=== PATIENT | male | born 1955 | race American Indian/Alaskan Native ===

== ENCOUNTER 2019-07-02 11:28 | Observation (INO) | payer OTHER ==
--- NOTE | 2019-07-02 12:30 | Emergency Department Report ---
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 While he was sitting in the chair he was reading the sign and he reports groin increasingly worsening dizziness which was followed by persons waking him up and he had just passed out. Reports having no headache, chest pain, palpitations, nausea or vomiting normal at right now but just prior to passing out he did notice some dizziness and increased heat. According to his doctor's records there was some some diaphoresis that was associated with the syncopal episode. No pain. The stimuli preceded his syncope. No palliative or provocative factors are noted. He reports that he feels normal towards his baseline Timing/Prior Episodes: single episode today Precipitating Factors: Positive: blurred vision Context: sitting Loss of Consciousness: brief (seconds) Current Symptoms: back to normal - Related Data Allergies/Adverse Reactions: Allergies No Known Allergies Allergy (Verified 06/06/19 13:53) Home Medications: Ambulatory Orders Meloxicam 15 mg PO PRN 06/07/19 Aspirin [Adult Aspirin] 81 mg PO DAILY 07/03/19 AtorvaSTATin [Lipitor] 40 mg PO QHS #30 tablet 07/04/19 Clopidogrel [Plavix] 75 mg PO QDAY #30 tablet 07/04/19 Metoprolol [Lopressor TAB] 50 mg PO BID #60 tablet 07/04/19 Sacubitril/Valsartan [Entresto 24 - 26 mg] 1 each PO BID #60 tablet 07/04/19 ED Review of Systems ROS: Stated complaint: SYNCOPY Other details as noted in HPI Comment: All other systems reviewed and negative ED Past Medical Hx - Past Medical History Previous Medical History?: Yes Hx Kidney Stones: Yes Additional medical history: two coronary stints - Surgical History Past Surgical History?: Yes Hx Coronary Stent: Yes - Social History Smoking Status: Never Smoker Substance Use Type: None - Medications Home Medications: Home Medications Medication Instructions Recorded Confirmed Last Taken Type Meloxicam 15 mg PO PRN 06/07/19 07/03/19 1 Week Ago History ~05/31/19 Aspirin [Adult Aspirin] 81 mg PO DAILY 02/01/20 02/01/20 Unknown History AtorvaSTATin [Lipitor] 40 mg PO QHS #30 tablet 07/04/19 Unknown Rx Clopidogrel [Plavix] 75 mg PO QDAY #30 tablet 07/04/19 Unknown Rx Metoprolol [Lopressor TAB] 50 mg PO BID #60 tablet 07/04/19 Unknown Rx Sacubitril/Valsartan [Entresto 24 1 each PO BID #60 tablet 07/04/19 Unknown Rx - 26 mg] ED Physical Exam - General Limitations: No Limitations General appearance: alert, in no apparent distress - Head Head exam: Present: atraumatic, normocephalic, normal inspection - Eye Eye exam: Present: normal appearance, PERRL, EOMI, other (negative funduscopic examination) - ENT ENT exam: Present: normal exam, mucous membranes moist, TM's normal bilaterally - Neck Neck exam: Present: normal inspection, full ROM. Absent: tenderness, meningismus, lymphadenopathy - Respiratory Respiratory exam: Present: normal lung sounds bilaterally. Absent: respiratory distress, wheezes, rales, rhonchi, chest wall tenderness, accessory muscle use, decreased breath sounds - Cardiovascular Cardiovascular Exam: Present: regular rate, normal rhythm. Absent: bradycardia, tachycardia, irregular rhythm, systolic murmur, diastolic murmur, rubs, gallop - GI/Abdominal GI/Abdominal exam: Present: soft, normal bowel sounds. Absent: distended - Rectal Rectal exam: Present: deferred - Extremities Exam Extremities exam: Present: normal inspection - Back Exam Back exam: Present: normal inspection - Neurological Exam Neurological exam: Present: alert, oriented X3, CN II-XII intact - Psychiatric Psychiatric exam: Present: normal affect, normal mood - Skin Skin exam: Present: warm, dry, intact, normal color. Absent: rash ED Course Vital Signs 07/02/19 07/02/19 07/02/19 11:39 11:45 11:48 Temperature 98.2 F Pulse Rate 72 76 Respiratory 20 18 Rate Blood Pressure 107/75 107/75 Blood Pressure 107/75 [Right] O2 Sat by Pulse 89 100 100 Oximetry 07/02/19 07/02/19 07/02/19 12:01 12:15 12:31 Temperature Pulse Rate 70 77 81 Respiratory 17 10 L 10 L Rate Blood Pressure 107/75 107/75 107/75 Blood Pressure [Right] O2 Sat by Pulse 98 99 99 Oximetry 07/02/19 07/02/19 07/02/19 12:45 13:01 13:15 Temperature Pulse Rate 76 76 86 Respiratory 12 16 9 L Rate Blood Pressure 107/75 107/75 107/75 Blood Pressure [Right] O2 Sat by Pulse 99 97 99 Oximetry 07/02/19 07/02/19 07/02/19 13:31 13:45 14:01 Temperature Pulse Rate 85 86 91 H Respiratory 17 21 12 Rate Blood Pressure 107/75 107/75 107/75 Blood Pressure [Right] O2 Sat by Pulse 98 97 100 Oximetry 07/02/19 07/02/19 07/02/19 14:15 14:28 14:31 Temperature Pulse Rate 91 H 96 H Respiratory 18 1 L 18 Rate Blood Pressure 107/75 107/75 Blood Pressure [Right] O2 Sat by Pulse 99 100 97 Oximetry 07/02/19 07/02/19 07/02/19 14:45 15:01 15:15 Temperature Pulse Rate 99 H 108 H 102 H Respiratory 18 18 22 Rate Blood Pressure 107/75 107/75 107/75 Blood Pressure [Right] O2 Sat by Pulse 100 99 99 Oximetry 07/02/19 07/02/19 07/02/19 15:31 15:45 16:01 Temperature Pulse Rate 98 H 97 H 104 H Respiratory 20 19 21 Rate Blood Pressure 107/75 107/75 107/75 Blood Pressure [Right] O2 Sat by Pulse 98 97 100 Oximetry 07/02/19 07/02/19 07/02/19 16:15 16:37 16:45 Temperature Pulse Rate 105 H 91 H 95 H Respiratory 24 17 18 Rate Blood Pressure 107/75 107/75 107/75 Blood Pressure [Right] O2 Sat by Pulse 100 100 99 Oximetry 07/02/19 07/02/19 07/02/19 17:01 17:15 17:31 Temperature Pulse Rate 99 H 96 H 95 H Respiratory 18 17 17 Rate Blood Pressure 107/75 107/75 Blood Pressure [Right] O2 Sat by Pulse 98 99 97 Oximetry 07/02/19 07/02/19 07/02/19 17:45 18:01 18:15 Temperature Pulse Rate 106 H 115 H 101 H Respiratory 16 16 20 Rate Blood Pressure Blood Pressure [Right] O2 Sat by Pulse 97 94 97 Oximetry 07/02/19 07/02/19 07/02/19 18:31 18:45 19:01 Temperature Pulse Rate 98 H 92 H 113 H Respiratory 21 19 28 H Rate Blood Pressure Blood Pressure [Right] O2 Sat by Pulse 97 100 Oximetry 07/02/19 07/02/19 07/02/19 19:15 19:31 19:45 Temperature Pulse Rate 101 H 102 H 100 H Respiratory 19 20 12 Rate Blood Pressure Blood Pressure [Right] O2 Sat by Pulse 100 100 99 Oximetry 07/02/19 07/02/19 07/02/19 20:37 20:41 21:09 Temperature Pulse Rate 96 H 112 H 82 Respiratory 16 Rate Blood Pressure 132/80 Blood Pressure [Right] O2 Sat by Pulse Oximetry ED Medical Decision Making - Lab Data Result diagrams: 07/03/19 04:16 07/03/19 04:16 - EKG Data EKG shows normal: sinus rhythm - EKG Data When compared to previous EKG there are: no significant change - Medical Decision Making This 64 patient presents with symptoms consistent with syncope, most likely due to cardiovascular etiology. Differential diagnosis includes cardiogenic's reflex syncope (i.e. vasovagal syncope). Low suspicion for orthostatic syncope given lack of dehydration, no evidence of acute life threatening hemorrhage. Presentation not consistent with seizures given short time course, no postictal state, no seizure activity. Low suspicion for acute neurologic catastrophes to include ICH given lack of trauma, risk factors for bleeding diatheses. Low suspicion for vascular catastrophes to include PE, thoracic aortic dissection, AAA rupture. Presentation not consistent with acute life threatening arrhythmia, structural heart disease, electrical conduction abnormalities, or ACS . However, given age, cardiovascular risk factors, history & physical, will workup and admit to telemetry. Plan: labs, troponin, CXR, EKG, serial reassessment Critical care attestation.: If time is entered above; I have spent that time in minutes in the direct care of this critically ill patient, excluding procedure time. ED Disposition Clinical Impression: Syncope, cardiogenic Disposition: OP ADMIT IP TO THIS HOSP Is pt being admited?: Yes Does the pt Need Aspirin: No Condition: Stable
--- NOTE | 2019-07-02 12:39 | Event Note ---
Date: 07/02/19 Patient referred to the ED following a syncopal episode in our office. Patient suffered an acute anterolateral AK 3 weeks ago followed by PCI of the LAD using drug eluting stents. His residual LVEF was 20-25%. Recommendations: Telemetry monitoring. Lifevest placement before discharge.
[2019-07-02 14:53] LABS: Hematocrit 35.3 % (35.5-45.6); Hemoglobin 11.4 gm/dl (11.8-15.2); Mean Corpuscular HGB Conc 32 % (32-34); Mean Corpuscular Volume 88 fl (84-94); Platelet Count 218 K/mm3 (140-440); Red Blood Count 4.03 M/mm3 (3.65-5.03); Red Cell Distribution Width 13.8 % (13.2-15.2)
[2019-07-02 15:22] LABS: Alanine Aminotransferase 16 units/L (7-56); Albumin 3.4 g/dL (3.9-5); BUN/Creatinine Ratio 21; Blood Urea Nitrogen 19 mg/dL (9-20); Calcium 9.3 mg/dL (8.4-10.2); Hemolysis Index 6
[2019-07-02 15:38] LABS: Bacteria,Urine 1+ /HPF (Negative); Bilirubin,Urine NEG (Negative); Blood,Urine SM (Negative); Color,Urine Yellow (Yellow); Mucus,Urine 3+ /HPF; Protein,Urine <15 mg/dL mg/dL (Negative); Sperm,Urine FEW /HPF (NP); Urobilinogen,Urine < 2.0 mg/dL (<2.0)
--- NOTE | 2019-07-02 17:11 | Cat Scan Report ---
CT HEAD WITHOUT CONTRAST INDICATION : Syncope. TECHNIQUE: Axial imaging performed from the skull apex through the skull base without IV contrast. All CT scans at this location are performed using CT dose reduction for ALARA by means of automated e xposure control. COMPARISON: None FINDINGS: Noncontrast head CT demonstrates normal ventricles and sulci. Slight periventricular hypod ensities. Small cavum velum interpositum incidentally noted. No acute or recent infarct, hemorrhage , mass effect or midline shift. Minimal, benign bilateral basal ganglia calcifications. No abnormal extra-axial fluid collections. Grossly normal posterior fossa with preserved basilar cisterns. Normal imaged eye globes. Mild right sphenoid sinusitis inferiorly, axial image 8, series 3. Clear remainder visualized paranasal sinuses and mastoid air cells. Intact calvarium. Normal scalp. Multip le radiopaque dental material. IMPRESSION: No acute intracranial CT abnormality with mild right sphenoid sinusitis noted, as describ ed. Signer Name: Anival Riggs Signed: 07/02/2019 5:06 PM Workstation Name: [id number]
--- NOTE | 2019-07-02 17:20 | Cat Scan Report ---
CTA CHEST WITH CONTRAST / CT angio chest INDICATION : syncope. TECHNIQUE: Axial imaging performed through the chest, with contrast bolus timing set to maximize opa cification of the pulmonary arteries. 3-plane MIP reformatted images were obtained. All CT scans at this location are performed using CT dose reduction for ALARA by means of automated exposure control. 100 mL of intravenous contrast administered. COMPARISON: None similar. FINDINGS: Normal heart size. No effusions. No aortic aneurysm, dissection or suspicious pulmonary art erial filling defects, to the extent assessed. No size significant adenopathy. Normal airway. Normal size thyroid with small calcifications inferiorly on the left. Clear lungs. A tiny 1 mm extre me right lower lobe calcified granuloma medially may incidentally be noted, axial series 2, image 356 . Imaged upper abdomen reveals no acute significant abnormality. Mild mid to lower thoracic spine dege nerative spurring. IMPRESSION: No CT evidence of pulmonary embolism with few other incidental findings, as above. Thank you for the opportunity to participate in this patient's care. Signer Name: Anival Riggs Signed: 07/02/2019 5:16 PM Workstation Name: [id number]
[2019-07-02 18:00] LABS: Basophils % (Manual) 0 % (0.0-1.8); Total Cells Counted 100
[2019-07-02 18:01] LABS: RBC Morphology Normal
[2019-07-02] MEDS ORDERED: ONDANSETRON 4 MG/2 ML INJ IV PRN (19:06)
[2019-07-02] MEDS ORDERED: HYDROmorphone 1 MG/1 ML INJ IV PRN (19:06)
[2019-07-02] MEDS ORDERED: ACETAMINOPHEN 325 MG TAB PO PRN (19:06)
[2019-07-02] MEDS ORDERED: oxyCODONE /ACETAMINOPHEN 5-325MG TAB PO PRN (19:06)
[2019-07-02] MEDS ORDERED: MELOXICAM 15 MG PO SCH (19:15)
[2019-07-02] MEDS ORDERED: LISINOPRIL 10 MG TAB PO SCH (20:00)
[2019-07-02] MEDS ORDERED: ASPIRIN EC 325 MG TAB PO SCH (20:00)
[2019-07-02] MEDS ORDERED: CLOPIDOGREL 75 MG TAB ONE (20:36)
[2019-07-02] MEDS ORDERED: ASPIRIN EC 325 MG TAB PO ONE (20:36)
[2019-07-02] MEDS ORDERED: LISINOPRIL 10 MG TAB ONE (20:37)
[2019-07-02] MEDS ORDERED: METOPROLOL TARTRATE 50 MG TAB ONE (20:47)
[2019-07-02] MEDS: CLOPIDOGREL 75 MG TAB PO SCH (21:09)
[2019-07-02] MEDS ORDERED: MELOXICAM 7.5 MG TAB PO PRN (22:26)
[2019-07-02] MEDS: METOPROLOL TARTRATE 100 MG TAB PO SCH (22:53)
[2019-07-02] MEDS: HEPARIN 5,000 UNIT/1 ML VIAL SUB-Q SCH (22:54)
[2019-07-02] MEDS: D5W/0.9% NACL 1,000 ML IV SCH (22:55)
[2019-07-03 04:54] LABS: Basophils % (Auto) 0.3 % (0.0-1.8); Eosinophils # (Auto) 0.1 K/mm3 (0.0-0.4); Eosinophils % (Auto) 2.9 % (0.0-4.3); Hematocrit 28.1 % (35.5-45.6); Hemoglobin 9.2 gm/dl (11.8-15.2); Lymphocytes # (Auto) 1.4 K/mm3 (1.2-5.4); Lymphocytes % (Auto) 30.7 % (13.4-35.0); Mean Corpuscular HGB Conc 33 % (32-34); Mean Corpuscular Volume 87 fl (84-94); Monocytes # (Auto) 0.5 K/mm3 (0.0-0.8); Monocytes % (Auto) 11.8 % (0.0-7.3); Platelet Count 183 K/mm3 (140-440); Red Blood Count 3.22 M/mm3 (3.65-5.03); Red Cell Distribution Width 14.3 % (13.2-15.2)
[2019-07-03 05:17] LABS: Alanine Aminotransferase 12 units/L (7-56); Albumin 3.2 g/dL (3.9-5); BUN/Creatinine Ratio 17; Blood Urea Nitrogen 17 mg/dL (9-20); Calcium 8.9 mg/dL (8.4-10.2); Hemolysis Index 2
--- NOTE | 2019-07-03 08:48 | Progress Note ---
Assessment and Plan 1. Syncope and collapse 2. Coronary artery disease status post recent acute myocardial infarction 3. Status post stent insertion into the left anterior descending artery 4. Ischemic cardiomyopathy Plan. Patient is currently stable electrolytes check shows normal electrolytes. Patient probably experienced a malignant cardiac dysrhythmia leading to syncope which most likely upon spontaneously resolved. He will receive a life vest brought to discharge with plans for permanent ICD insertion as per ACC recommendation Subjective Date of service: 07/03/19 Interval history: No cardiac symptoms. Objective Vital Signs Temp Pulse Resp BP BP Pulse Ox 07/03/19 05:33 98.8 F 98 H 18 90/55 99 07/03/19 04:00 73 07/03/19 00:00 20 07/02/19 23:48 98.4 F 81 18 85/55 96 07/02/19 21:36 98.2 F 88 18 94/49 100 07/02/19 21:09 82 132/80 07/02/19 20:41 112 H 16 07/02/19 20:37 96 H 07/02/19 19:45 100 H 12 99 07/02/19 19:31 102 H 20 100 07/02/19 19:15 101 H 19 100 07/02/19 19:01 113 H 28 H 07/02/19 18:45 92 H 19 100 07/02/19 18:31 98 H 21 97 07/02/19 18:15 101 H 20 97 07/02/19 18:01 115 H 16 94 07/02/19 17:45 106 H 16 97 07/02/19 17:31 95 H 17 97 07/02/19 17:15 96 H 17 107/75 99 07/02/19 17:01 99 H 18 107/75 98 07/02/19 16:45 95 H 18 107/75 99 07/02/19 16:37 91 H 17 107/75 100 07/02/19 16:15 105 H 24 107/75 100 07/02/19 16:01 104 H 21 107/75 100 07/02/19 15:45 97 H 19 107/75 97 07/02/19 15:31 98 H 20 107/75 98 07/02/19 15:15 102 H 22 107/75 99 07/02/19 15:01 108 H 18 107/75 99 07/02/19 14:45 99 H 18 107/75 100 07/02/19 14:31 96 H 18 107/75 97 07/02/19 14:28 1 L 100 07/02/19 14:15 91 H 18 107/75 99 07/02/19 14:01 91 H 12 107/75 100 07/02/19 13:45 86 21 107/75 97 07/02/19 13:31 85 17 107/75 98 07/02/19 13:15 86 9 L 107/75 99 07/02/19 13:01 76 16 107/75 97 07/02/19 12:45 76 12 107/75 99 07/02/19 12:31 81 10 L 107/75 99 07/02/19 12:15 77 10 L 107/75 99 07/02/19 12:01 70 17 107/75 98 07/02/19 11:48 98.2 F 76 18 107/75 107/75 100 07/02/19 11:45 72 20 107/75 100 07/02/19 11:39 89 - Physical Examination General: Appears Well, No Apparent Distress HEENT: Neck: Cardiac: Lungs: Neuro: Abdomen: /Rectal: Normal Prostate, No Masses Skin: Musculoskeletal: No Fluid Collection, No Pain, Normal Range of Motion Gait: Normal Gait Extremities: - Labs and Meds Cardiac Enzymes 07/02/19 07/02/19 07/02/19 Range/Units 14:37 14:37 14:52 WBC 5.4 (4.5-11.0) K/mm3 RBC 4.03 (3.65-5.03) M/mm3 Hgb 11.4 L (11.8-15.2) gm/dl Hct 35.3 L (35.5-45.6) % MCV 88 (84-94) fl MCH 28 (28-32) pg MCHC 32 (32-34) % RDW 13.8 (13.2-15.2) % Plt Count 218 (140-440) K/mm3 Lymph % (Auto) (13.4-35.0) % [place] % (Auto) (0.0-7.3) % Eos % (Auto) (0.0-4.3) % Baso % (Auto) (0.0-1.8) % Lymph # (1.2-5.4) K/mm3 [place] # (0.0-0.8) K/mm3 Eos # (0.0-0.4) K/mm3 Baso # (0.0-0.1) K/mm3 Add Manual Diff Complete Total Counted 100 Seg Neutrophils % (40.0-70.0) % Seg Neuts % (Manual) 79.0 H (40.0-70.0) % Band Neutrophils % 0 % Lymphocytes % (Manual) 16.0 (13.4-35.0) % Reactive Lymphs % (Man) 0 % Monocytes % (Manual) 4.0 (0.0-7.3) % Eosinophils % (Manual) 1.0 (0.0-4.3) % Basophils % (Manual) 0 (0.0-1.8) % Metamyelocytes % 0 % Myelocytes % 0 % Promyelocytes % 0 % Blast Cells % 0 % Nucleated RBC % Not Reportable Seg Neutrophils # (1.8-7.7) K/mm3 Seg Neutrophils # Man 4.3 (1.8-7.7) K/mm3 Band Neutrophils # 0.0 K/mm3 Lymphocytes # (Manual) 0.9 L (1.2-5.4) K/mm3 Abs React Lymphs (Man) 0.0 K/mm3 Monocytes # (Manual) 0.2 (0.0-0.8) K/mm3 Eosinophils # (Manual) 0.1 (0.0-0.4) K/mm3 Basophils # (Manual) 0.0 (0.0-0.1) K/mm3 Metamyelocytes # 0.0 K/mm3 Myelocytes # 0.0 K/mm3 Promyelocytes # 0.0 K/mm3 Blast Cells # 0.0 K/mm3 WBC Morphology Not Reportable Hypersegmented Neuts Not Reportable Hyposegmented Neuts Not Reportable Hypogranular Neuts Not Reportable Smudge Cells Not Reportable Toxic Granulation Not Reportable Toxic Vacuolation Not Reportable Dohle Bodies Not Reportable Pelger-Huet Anomaly Not Reportable Sheron Rods Not Reportable Platelet Estimate Not Reportable Clumped Platelets Not Reportable Plt Clumps, EDTA Not Reportable Large Platelets Not Reportable Giant Platelets Not Reportable Platelet Satelliting Not Reportable Plt Morphology Comment Not Reportable RBC Morphology Normal Dimorphic RBCs Not Reportable Polychromasia Not Reportable Hypochromasia Not Reportable Poikilocytosis Not Reportable Anisocytosis Not Reportable Microcytosis Not Reportable Macrocytosis Not Reportable Spherocytes Not Reportable Pappenheimer Bodies Not Reportable Sickle Cells Not Reportable Target Cells Not Reportable Tear Drop Cells Not Reportable Ovalocytes Not Reportable Helmet Cells Not Reportable Martin-Eldred Bodies Not Reportable [place] Rings Not Reportable Twilight Cells Not Reportable Bite Cells Not Reportable Crenated Cell Not Reportable Elliptocytes Not Reportable Acanthocytes (Spur) Not Reportable Rouleaux Not Reportable Hemoglobin C Crystals Not Reportable Schistocytes Not Reportable Malaria parasites Not Reportable German Bodies Not Reportable Hem Pathologist Commnt No Sodium 144 (137-145) mmol/L Potassium 4.4 (3.6-5.0) mmol/L Chloride 107.1 H (98-107) mmol/L Carbon Dioxide 20 L (22-30) mmol/L Anion Gap 21 mmol/L BUN 19 (9-20) mg/dL Creatinine 0.9 (0.8-1.5) mg/dL Estimated GFR > 60 ml/min BUN/Creatinine Ratio 21 % Glucose 93 (75-100) mg/dL Hemoglobin A1c (4-6) % Calcium 9.3 (8.4-10.2) mg/dL Total Bilirubin 0.40 (0.1-1.2) mg/dL AST 19 (5-40) units/L ALT 16 (7-56) units/L Alkaline Phosphatase 57 (35-129) units/L Troponin T 0.019 (0.00-0.029) ng/mL Total Protein 7.7 (6.3-8.2) g/dL Albumin 3.4 L (3.9-5) g/dL Albumin/Globulin Ratio 0.8 % Urine Color Yellow (Yellow) Urine Turbidity Slightly-cloudy (Clear) Urine pH 5.0 (5.0-7.0) Ur Specific [place] 1.021 (1.003-1.030) Urine Protein <15 mg/dl (Negative) mg/dL Urine Glucose (UA) Neg (Negative) mg/dL Urine Ketones Tr (Negative) mg/dL Urine Blood Sm (Negative) Urine Nitrite Neg (Negative) Urine Bilirubin Neg (Negative) Urine Urobilinogen < 2.0 (<2.0) mg/dL Ur Leukocyte Esterase Neg (Negative) Urine WBC (Auto) 5.0 (0.0-6.0) /HPF Urine RBC (Auto) 3.0 (0.0-6.0) /HPF U Epithel Cells (Auto) 1.0 (0-13.0) /HPF Urine Bacteria (Auto) 1+ (Negative) /HPF Urine Mucus 3+ /HPF Urine Sperm Few (M[employer] MERCHANDISER) /HPF 07/03/19 07/03/19 07/03/19 Range/Units 04:16 04:16 04:16 WBC 4.4 L (4.5-11.0) K/mm3 RBC 3.22 L (3.65-5.03) M/mm3 Hgb 9.2 L (11.8-15.2) gm/dl Hct 28.1 L D (35.5-45.6) % MCV 87 (84-94) fl MCH 29 (28-32) pg MCHC 33 (32-34) % RDW 14.3 (13.2-15.2) % Plt Count 183 (140-440) K/mm3 Lymph % (Auto) 30.7 (13.4-35.0) % [place] % (Auto) 11.8 H (0.0-7.3) % Eos % (Auto) 2.9 (0.0-4.3) % Baso % (Auto) 0.3 (0.0-1.8) % Lymph # 1.4 (1.2-5.4) K/mm3 [place] # 0.5 (0.0-0.8) K/mm3 Eos # 0.1 (0.0-0.4) K/mm3 Baso # 0.0 (0.0-0.1) K/mm3 Add Manual Diff Total Counted Seg Neutrophils % 54.3 (40.0-70.0) % Seg Neuts % (Manual) (40.0-70.0) % Band Neutrophils % % Lymphocytes % (Manual) (13.4-35.0) % Reactive Lymphs % (Man) % Monocytes % (Manual) (0.0-7.3) % Eosinophils % (Manual) (0.0-4.3) % Basophils % (Manual) (0.0-1.8) % Metamyelocytes % % Myelocytes % % Promyelocytes % % Blast Cells % % Nucleated RBC % Seg Neutrophils # 2.4 (1.8-7.7) K/mm3 Seg Neutrophils # Man (1.8-7.7) K/mm3 Band Neutrophils # K/mm3 Lymphocytes # (Manual) (1.2-5.4) K/mm3 Abs React Lymphs (Man) K/mm3 Monocytes # (Manual) (0.0-0.8) K/mm3 Eosinophils # (Manual) (0.0-0.4) K/mm3 Basophils # (Manual) (0.0-0.1) K/mm3 Metamyelocytes # K/mm3 Myelocytes # K/mm3 Promyelocytes # K/mm3 Blast Cells # K/mm3 WBC Morphology Hypersegmented Neuts Hyposegmented Neuts Hypogranular Neuts Smudge Cells Toxic Granulation Toxic Vacuolation Dohle Bodies Pelger-Huet Anomaly Sheron Rods Platelet Estimate Clumped Platelets Plt Clumps, EDTA Large Platelets Giant Platelets Platelet Satelliting Plt Morphology Comment RBC Morphology Dimorphic RBCs Polychromasia Hypochromasia Poikilocytosis Anisocytosis Microcytosis Macrocytosis Spherocytes Pappenheimer Bodies Sickle Cells Target Cells Tear Drop Cells Ovalocytes Helmet Cells Martin-Eldred Bodies [place] Rings Twilight Cells Bite Cells Crenated Cell Elliptocytes Acanthocytes (Spur) Rouleaux Hemoglobin C Crystals Schistocytes Malaria parasites German Bodies Hem Pathologist Commnt Sodium 140 (137-145) mmol/L Potassium 4.1 (3.6-5.0) mmol/L Chloride 104.2 (98-107) mmol/L Carbon Dioxide 23 (22-30) mmol/L Anion Gap 17 mmol/L BUN 17 (9-20) mg/dL Creatinine 1.0 (0.8-1.5) mg/dL Estimated GFR > 60 ml/min BUN/Creatinine Ratio 17 % Glucose 109 H (75-100) mg/dL Hemoglobin A1c 5.4 (4-6) % Calcium 8.9 (8.4-10.2) mg/dL Total Bilirubin 0.30 (0.1-1.2) mg/dL AST 17 (5-40) units/L ALT 12 (7-56) units/L Alkaline Phosphatase 49 (35-129) units/L Troponin T (0.00-0.029) ng/mL Total Protein 6.7 (6.3-8.2) g/dL Albumin 3.2 L (3.9-5) g/dL Albumin/Globulin Ratio 0.9 % Urine Color (Yellow) Urine Turbidity (Clear) Urine pH (5.0-7.0) Ur Specific [place] (1.003-1.030) Urine Protein (Negative) mg/dL Urine Glucose (UA) (Negative) mg/dL Urine Ketones (Negative) mg/dL Urine Blood (Negative) Urine Nitrite (Negative) Urine Bilirubin (Negative) Urine Urobilinogen (<2.0) mg/dL Ur Leukocyte Esterase (Negative) Urine WBC (Auto) (0.0-6.0) /HPF Urine RBC (Auto) (0.0-6.0) /HPF U Epithel Cells (Auto) (0-13.0) /HPF Urine Bacteria (Auto) (Negative) /HPF Urine Mucus /HPF Urine Sperm ([employer] MERCHANDISER) /HPF CBC 07/02/19 07/03/19 Range/Units 14:37 04:16 WBC 5.4 4.4 L (4.5-11.0) K/mm3 RBC 4.03 3.22 L (3.65-5.03) M/mm3 Hgb 11.4 L 9.2 L (11.8-15.2) gm/dl Hct 35.3 L 28.1 L D (35.5-45.6) % Plt Count 218 183 (140-440) K/mm3 Lymph # 1.4 (1.2-5.4) K/mm3 [place] # 0.5 (0.0-0.8) K/mm3 Eos # 0.1 (0.0-0.4) K/mm3 Baso # 0.0 (0.0-0.1) K/mm3 Comprehensive Metabolic Panel 07/02/19 07/03/19 Range/Units 14:37 04:16 Sodium 144 140 (137-145) mmol/L Potassium 4.4 4.1 (3.6-5.0) mmol/L Chloride 107.1 H 104.2 (98-107) mmol/L Carbon Dioxide 20 L 23 (22-30) mmol/L BUN 19 17 (9-20) mg/dL Creatinine 0.9 1.0 (0.8-1.5) mg/dL Glucose 93 109 H (75-100) mg/dL Calcium 9.3 8.9 (8.4-10.2) mg/dL AST 19 17 (5-40) units/L ALT 16 12 (7-56) units/L Alkaline Phosphatase 57 49 (35-129) units/L Total Protein 7.7 6.7 (6.3-8.2) g/dL Albumin 3.4 L 3.2 L (3.9-5) g/dL
--- NOTE | 2019-07-03 08:57 | Event Note ---
Date: 07/02/19 Syncope CAD with stents Possible V Tach/V fib Needs Life vest to prevent life threatening Arrhythmia See H/p in reports
[2019-07-03] MEDS ORDERED: MELOXICAM 7.5 MG TAB PO PRN (09:05)
[2019-07-03] MEDS: CLOPIDOGREL 75 MG TAB PO SCH (10:18)
[2019-07-03] MEDS: ASPIRIN EC 81 MG TAB PO SCH (10:18)
--- NOTE | 2019-07-03 10:18 | History and Physical Report ---
CHIEF COMPLAINT: Passed out in the resume writer's office this afternoon. HISTORY OF PRESENT ILLNESS: A 64-year-old male with history of coronary artery disease who suffered an anterolateral ND 3 weeks ago. The patient had PCI of the left anterior descending using drug-eluting stents. His residual LV ejection fraction was 20-25%. The patient was waiting in the resume writer's office when the patient had passed out, which spontaneously resolved. He passed out for a few seconds. The patient was sent to the Emergency Room for possible cardiac dysrhythmias, probably malignant cardiac dysrhythmias like V-tach/ventricular fibrillation. The patient does not have chest pain. No sweating. The patient has some palpitations. No recent travel. PAST MEDICAL HISTORY: As mentioned, coronary artery disease with 2 coronary stents, kidney stones, congestive heart failure and hypertension. PAST SURGICAL HISTORY: Coronary stents. SOCIAL HISTORY: No alcohol, no recreational drugs. FAMILY HISTORY: Hypertension. CURRENT MEDICATIONS: Aspirin 325 once a day, Lipitor 40 mg once a day, Plavix 75 mg once a day, Imdur 30 mg once a day, metoprolol 100 mg twice a day and Zestril 10 mg once a day. REVIEW OF SYSTEMS: Significant for syncope. No chest pain. No palpitations. No diaphoresis. A 14-point review of systems done. PHYSICAL EXAMINATION: GENERAL: Elderly patient, cooperative during examination. VITAL SIGNS: Blood pressure 94/49, temperature 98.6, pulse is 88, respiratory rate 18, sats 100%. HEENT: Unremarkable. Pupils equal and reactive. NECK: Supple, no lymphadenopathy, no thyromegaly. LUNGS: Clear to auscultation and percussion. Good air entry. CARDIOVASCULAR: S1, S2 heard. No gallop, no murmur, no rub. Apical impulse in left fifth intercostal space and midclavicular line. ABDOMEN: Soft and benign. No hepatosplenomegaly. No guarding, no rigidity. Hernial orifices are normal. EXTREMITIES: Good pedal pulses. No pedal edema. CENTRAL NERVOUS SYSTEM: Alert and oriented x 4, nonfocal exam. SKIN: Normal. LABORATORY DATA: EKG, normal sinus rhythm. Head CT and chest CTA were negative. On the EKG, sinus rhythm, no acute ST-T wave changes. Heart rate of 72 per minute. Labs are within normal limits. Albumin is 3.4. ASSESSMENT AND PLAN: 1. Syncope. The patient has possible ventricular arrhythmias causing syncope. The patient to be put on LifeVest and followed by defibrillator in outpatient setting. Serial troponins. 2. Hypertension. Continue antihypertensives in the form of metoprolol. 3. Coronary artery disease. Continue Plavix and atorvastatin. 4. Hyperlipidemia. Continue atorvastatin. 5. Congestive heart failure. Continue Entresto 24/ b.i.d. 6. Deep venous thrombosis prophylaxis, heparin 5000 q. 12. 7. Cardiology consult requested. JOB# [id number] MIESHA/BRAXTON VIVAS
[2019-07-03] MEDS: METOPROLOL TARTRATE 100 MG TAB PO SCH ×2 (10:19→22:10)
[2019-07-03] MEDS: HEPARIN 5,000 UNIT/1 ML VIAL SUB-Q SCH ×2 (10:25→22:10)
[2019-07-03] MEDS: SACUBITRIL/VALSARTAN 24-26 MG TAB PO SCH (22:10)
[2019-07-03] MEDS: D5W/0.9% NACL 1,000 ML IV SCH (22:23)
--- NOTE | 2019-07-04 09:51 | Progress Note ---
Assessment and Plan 1. Syncope and collapse 2. Coronary artery disease status post recent acute myocardial infarction 3. Status post stent insertion into the left anterior descending artery 4. Ischemic cardiomyopathy Plan. Patient is currently stable electrolytes check shows normal electrolytes. Patient probably experienced a malignant cardiac dysrhythmia leading to syncope which most likely upon spontaneously resolved. Decrease dose of metoprolol due to low BP He received a life vest yesterday. For permanent ICD insertion as per ACC rec ommendation Subjective Date of service: 07/04/19 Interval history: No cardiac symptoms. Objective Vital Signs Temp Pulse Resp BP Pulse Ox 07/04/19 08:44 85 07/04/19 04:00 93 H 07/04/19 03:59 98.8 F 88 18 97/54 98 07/03/19 22:01 98.6 F 108 H 18 116/68 98 07/03/19 20:42 20 07/03/19 20:00 105 H 07/03/19 19:40 98.7 F 108 H 18 115/75 97 07/03/19 17:36 121 H 114/80 99 07/03/19 12:00 83 98 07/03/19 11:40 99 H 96/64 97 - Physical Examination General: Appears Well, No Apparent Distress HEENT: Neck: Cardiac: Positive: Regular Rate, S1/S2, S3, PMI, Dilated, Laterally Displaced Lungs: Positive: clear to auscultation, No Wheeze, Rales, Rhonchi Neuro: Positive: Grossly Intact, No Lateralizing Findings Abdomen: /Rectal: Normal Prostate, No Masses Skin: Musculoskeletal: No Fluid Collection, No Pain, Normal Range of Motion Gait: Normal Gait Extremities: Absent: edema
[2019-07-04] MEDS ORDERED: METOPROLOL TARTRATE 50 MG TAB PO SCH (10:00)
[2019-07-04] MEDS: ASPIRIN EC 81 MG TAB PO SCH (10:26)
[2019-07-04] MEDS: CLOPIDOGREL 75 MG TAB PO SCH (10:26)
[2019-07-04] MEDS: SACUBITRIL/VALSARTAN 24-26 MG TAB PO SCH (10:26)
[2019-07-04] MEDS: HEPARIN 5,000 UNIT/1 ML VIAL SUB-Q SCH (10:27)
[2019-07-04 16:03] VITALS: BP 121/82
--- NOTE | 2019-07-04 17:11 | Progress Note ---
Assessment and Plan - Patient Problems (1) Syncope and collapse Current Visit: Yes Status: Acute Plan to address problem: Possibly sec to ventricular dysrhymias.Patient to be placed on life vest.Defibrillator as out patient procedure. (2) HTN (hypertension) Current Visit: Yes Status: Chronic Qualifiers: Hypertension type: essential hypertension Qualified Code(s): I10 - Essential (primary) hypertension Plan to address problem: Cont antihypertensives (3) CAD (coronary artery disease) Current Visit: Yes Status: Chronic Qualifiers: Coronary Disease-Associated Artery/Lesion type: [place] artery [place] vs. 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 Objective - Constitutional Vitals: Vital Signs - 12hr 07/04/19 07/04/19 07/04/19 08:44 09:17 15:00 Temperature 97.9 F 98.1 F Pulse Rate 85 105 H 86 Respiratory 18 18 Rate Blood Pressure 114/79 Blood Pressure 121/82 [Right] O2 Sat by Pulse 97 98 Oximetry General appearance: Present: no acute distress, well-nourished - EENT Eyes: PERRL, EOM intact ENT: hearing intact, clear oral mucosa Ears: bilateral: normal - Neck Neck: supple, normal ROM - Respiratory Respiratory effort: normal Respiratory: bilateral: CTA - Breasts Breasts: normal - Cardiovascular Heart rate: 90 Rhythm: regular Heart Sounds: Present: S1 & S2. Absent: gallop, rub Extremities: pulses intact, No edema, normal color, Full ROM - Gastrointestinal General gastrointestinal: Present: soft, non-tender, non-distended, normal bowel sounds Rectal Exam: deferred - Genitourinary Male genitourinary: normal - Integumentary Integumentary: clear, warm, dry - Musculoskeletal Musculoskeletal: 1, strength equal bilaterally - Neurologic Neurologic: moves all extremities - Psychiatric Psychiatric: memory intact, appropriate mood/affect, intact judgment & insight - Labs CBC & Chem 7: 07/03/19 04:16 07/03/19 04:16 - Imaging and cardiology EKG: report reviewed
--- NOTE | 2019-07-04 17:17 | Discharge Summary ---
Providers - Providers Date of Admission: 07/02/19 19:06 Date of discharge: 07/04/19 Attending physician: SOLO HARRY 07/02/19 19:06 Consult to Physician [CONS] Routine Comment: Consulting Provider: CLAIRE MONTALVO Physician Instructions: Reason For Exam: V tach Primary care physician: OFFICE RENTAL CLERK Hospitalization Condition: Stable Procedures: Life vest placed Hospital course: Patient is currently stable electrolytes check shows normal electrolytes. Patient probably experienced a malignant cardiac dysrhythmia leading to syncope which most likely upon spontaneously resolved. Decrease dose of metoprolol due to low BP He received a life vest yesterday. For permanent ICD insertion as per ACC recommendation. (1) Syncope and collapse Current Visit: Yes Status: Acute Plan to address problem: Possibly sec to ventricular dysrhymias.Patient placed on life vest.Defibrillator (ICD)as out patient procedure. Patinthad life vest last night around 10 pm (2) HTN (hypertension) Current Visit: Yes Status: Chronic Qualifiers: Hypertension type: essential hypertension Qualified Code(s): I10 - Essential (primary) hypertension Plan to address problem: Cont antihypertensives Lopressor decreased to 50 mg po bid b/c of low BP (3) CAD (coronary artery disease) Current Visit: Yes Status: Chronic Qualifiers: Coronary Disease-Associated Artery/Lesion type: [place] artery [place] vs. transplanted heart: [place] heart Plan to address problem: Cont Plavix and Statins (4) CHF (congestive heart failure) Current Visit: Yes Status: Chronic Qualifiers: Heart failure type: combined systolic and diastolic Plan to address problem: Cont Entresto Decrease metoprolol to 50 po bid Disposition: TO HOME OR SELFCARE Core Measure Documentation - Palliative Care Palliative Care/ Comfort Measures: Not Applicable - Core Measures Any of the following diagnoses?: none Exam - Constitutional Vitals: Temp Pulse Resp BP Pulse Ox 98.1 F 86 18 121/82 98 07/04/19 15:00 07/04/19 15:00 07/04/19 15:00 07/04/19 15:07/04/19 15:00 General appearance: Present: no acute distress, well-nourished - EENT Eyes: Present: PERRL ENT: hearing intact, clear oral mucosa - Neck Neck: Present: supple, normal ROM - Respiratory Respiratory effort: normal Respiratory: bilateral: CTA - Cardiovascular Heart rate: 90 Rhythm: regular Heart Sounds: Present: S1 & S2. Absent: rub, click - Extremities Extremities: pulses symmetrical, No edema Peripheral Pulses: within normal limits - Abdominal General gastrointestinal: Present: soft, non-tender, non-distended, normal bowel sounds Male genitourinary: Present: normal - Rectal Rectal Exam: deferred - Integumentary Integumentary: Present: clear, warm, dry - Musculoskeletal Musculoskeletal: gait normal, strength equal bilaterally - Psychiatric Psychiatric: appropriate mood/affect, intact judgment & insight - Neurologic Neurologic: CNII-XII intact, moves all extremities - Allied Health Allied health notes reviewed: nursing, case management Plan Activity: no restrictions Diet: low fat, low cholesterol, low salt Follow up with: PRIMARY MD LOLITA [Primary Care Provider] - 7 Days CLAIRE MONTALVO MD [Staff Physician] - 7 Days
== END 2019-07-04 19:00 | disposition home or self-care (01) ==
LOC: ED 11:28 → 4A 19:06
PROVIDERS: ADMIT Internal Medicine; ATTEND Internal Medicine
DX: R55 Syncope and collapse (principal); I25.10 Atherosclerotic heart disease of native coronary artery without angina pectoris; I11.0 Hypertensive heart disease with heart failure; I50.9 Heart failure, unspecified; Z95.1 Presence of aortocoronary bypass graft; Z79.82 Long term (current) use of aspirin; Z79.02 Long term (current) use of antithrombotics/antiplatelets; Z87.442 Personal history of urinary calculi; Z98.890 Other specified postprocedural states
CPT/HCPCS: 36415; 70450; 71275; 80053; 81001; 83036; 84484; 85007; 85025; 93005; 93010; 96360; 96361; 96372; 99284; A9270; G0378; J1644; J7042; Q9967